=== PATIENT | male | born 1975 | race Caucasian/White ===

== ENCOUNTER 2017-05-08 17:37 | Emergency (ER) | payer SELFPAY ==
[~2017-05-08] VITALS: Ht 175.3 cm; Wt 90.7 kg
[2017-05-08 18:10] VITALS: BP 132/76
[2017-05-08] MEDS ORDERED: LIDOCAINE 1% / SOD BICARB 8.4% 20 ML VIAL. IJ ONE (18:30)
--- NOTE | 2017-05-08 18:57 | PHYS DOC ---
Past Medical History Past Medical History: No Pertinent History Past Surgical History: Other Additional Past Surgical Histo: dental surgeries Alcohol Use: Occasionally Drug Use: None Adult General Chief Complaint Chief Complaint: LACERATION/AVULSION HPI HPI Patient is a 41 year old male who presents with left eyebrow laceration, patient states he was working with a miter saw when it kicked back and cut him. Patient denies any loss of consciousness. Review of Systems Review of Systems Constitutional: Denies fever or chills [] Eyes: Denies change in visual acuity, redness, or eye pain [] Integument: left eyebrow laceration Neurologic: Denies headache, focal weakness or sensory changes [] Endocrine: Denies polyuria or polydipsia [] Current Medications Current Medications Current Medications Medications (Trade) Dose Ordered Sig/Mahin Start Time Stop Time Status Last Admin Dose Admin Lidocaine/Sodium Bicarbonate (Buffered Lidocaine 1%) 20 ml 1X ONCE 05/08/17 18:30 05/08/17 18:31 DC 05/08/17 18:42 20 ML Allergies Allergies Allergies Coded Allergies Type Severity Reaction Last Updated Verified No Known Drug Allergies 11/26/15 No Physical Exam Physical Exam Constitutional: Well developed, well nourished, no acute distress, non-toxic appearance. [] HENT: Normocephalic, atraumatic, bilateral external ears normal, oropharynx moist, no oral exudates, nose normal. [] Skin: Left lateral upper eyebrow with a laceration approximately 1 cm long. There is no eye involvement. Back: No tenderness, no CVA tenderness. [] Extremities: No tenderness, no cyanosis, no clubbing, ROM intact, no edema. [] Neurologic: Alert and oriented X 3, normal motor function, normal sensory function, no focal deficits noted. [] Psychologic: Affect normal, judgement normal, mood normal. [] Current Patient Data Vital Signs Vital Signs Date Time Temp Pulse Resp B/P (MAP) Pulse Ox O2 Delivery O2 Flow Rate FiO2 05/08/17 18:10 97.5 83 20 97 Room Air 97.5 EKG EKG [] Radiology/Procedures Radiology/Procedures Indication: Left eyebrow laceration Procedure: The patient was placed in the appropriate position and anesthesia around the laceration was 1% buffered lidocaine, the area was explored for foreign objects, none was found. The area was then cleaned with 10 ML of normal saline and Betadine, the laceration was closed with 3 interrupted sutures using 6. 0 Prolene and left open to air. Total repaired wound length: Approximately 1 cm Other Items: none The patient tolerated the procedure well Complications:none Course & Med Decision Making Course & Med Decision Making Pertinent Labs and Imaging studies reviewed. (See chart for details) Patient has left upper eyebrow laceration. Laceration was closed by me as noted in procedures, tetanus is up-to-date. Wound care instructions as well as return precautions provided. Discharged in stable condition. Dragon Disclaimer Dragon Disclaimer This electronic medical record was generated, in whole or in part, using a voice recognition dictation system. Departure Departure Impression: Primary Impression: Laceration of eyebrow, left Disposition: 01 HOME, SELF-CARE Condition: STABLE Referrals: NO PCP (PCP) Follow-up with your doctor or the emergency room in 5 days for suture removal Patient Instructions: Laceration Care, Adult, [id number] Additional Instructions: You were seen for left eyebrow laceration. Keep the area clean and dry. Apply Neosporin to the area twice a day. Monitor it for signs and symptoms of infection including but not limited to increased redness increased warmth or odor/yellow drainage from the area and return to the ED if they occur. Follow- up with your doctor or the emergency room in 5 days for suture removal. Scripts No Active Prescriptions or Reported Meds Problem Qualifiers Primary Impression: Laceration of eyebrow, left Encounter type: initial encounter Qualified Codes: S01.112A - Laceration without foreign body of left eyelid and periocular area, initial encounter NATALIE WATKINS FLARE STITCHER May 08, 2017 18:57
== END 2017-05-08 19:00 | disposition home or self-care (01) ==
LOC: ER 17:37
DX: S01.112A Laceration without foreign body of left eyelid and periocular area, initial encounter (principal); W29.8XXA Contact with other powered hand tools and household machinery, initial encounter; Y93.89 Activity, other specified; Y99.8 Other external cause status; Y92.89 Other specified places as the place of occurrence of the external cause
CPT/HCPCS: 12011; 99283-25

== ENCOUNTER 2017-05-14 21:17 | Emergency (ER) | payer SELFPAY ==
[~2017-05-14] VITALS: Ht 175.3 cm; Wt 95.3 kg
[2017-05-14 22:00] VITALS: BP 121/66
--- NOTE | 2017-05-14 22:02 | PHYS DOC ---
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 He has 3 sutures above his left eye. He denies any drainage or discharge coming from the site. He denies any fever chills nausea vomiting. Review of Systems Review of Systems Constitutional: Denies fever or chills [] Eyes: Denies change in visual acuity, redness, or eye pain [] HENT: Denies nasal congestion or sore throat [] Respiratory: Denies cough or shortness of breath [] Cardiovascular: No additional information not addressed in HPI [] GI: Denies abdominal pain, nausea, vomiting, bloody stools or diarrhea [] : Denies dysuria or hematuria [] Musculoskeletal: Denies back pain or joint pain [] Integument: Denies rash or skin lesions. Patient presents to the emergency department for suture removal Neurologic: Denies headache, focal weakness or sensory changes [] Endocrine: Denies polyuria or polydipsia [] Allergies Allergies Allergies Coded Allergies Type Severity Reaction Last Updated Verified No Known Drug Allergies 11/26/15 No Physical Exam Physical Exam Constitutional: Well developed, well nourished, no acute distress, non-toxic appearance. [] Eyes: PERRLA, EOMI, conjunctiva normal, no discharge. Cardiovascular: [place] warm and dry Lungs & Thorax: No respiratory distress noted Skin: Warm, dry, no erythema, no rash. Patient with 3 interrupted sutures noted above the left eye. No drainage or discharge noted from the site edges appear to approximated very well. Neurologic: Alert and oriented X 3, normal motor function, normal sensory function, no focal deficits noted. [] Psychologic: Affect normal, judgement normal, mood normal. [] EKG EKG [] Radiology/Procedures Radiology/Procedures [] Course & Med Decision Making Course & Med Decision Making Pertinent Labs and Imaging studies reviewed. (See chart for details) 3 sutures removed above the left eye. Patient be discharged home in stable condition signs symptoms to return back to emergency department been provided. Patient was encouraged to clean the sites with soap and water and apply any type of antibiotic is needed. Signs and symptoms to follow up with a primary care physician as been provided. Signs and symptoms to return back to emergency department as been provided as well. [] Dragon Disclaimer Dragon Disclaimer This electronic medical record was generated, in whole or in part, using a voice recognition dictation system. Departure Departure Impression: Primary Impression: Visit for suture removal Disposition: HOME, SELF-CARE Condition: STABLE Referrals: NO PCP (PCP) Patient Instructions: Suture Removal-Brief Additional Instructions: Activity as tolerated. Tylenol or ibuprofen for pain or discomfort. Clean the site with soap and water and apply antibiotic ointment to the area. Continue to watch for signs and symptoms of infection: Redness, warmth, tenderness or any yellow/greenish drainage of a come from the site. Follow-up through primary care physician as needed. Return back to emergency department sign symptoms of become worse. Scripts No Active Prescriptions or Reported BARBIE Marie APRN May 14, 2017 22:02
== END 2017-05-14 22:05 | disposition home or self-care (01) ==
LOC: ER 21:17
DX: S01.81XD Laceration without foreign body of other part of head, subsequent encounter (principal); X58.XXXD Exposure to other specified factors, subsequent encounter; Y99.8 Other external cause status; Y92.89 Other specified places as the place of occurrence of the external cause
CPT/HCPCS: 99281

== ENCOUNTER 2021-03-09 07:34 | Emergency (ER) | payer SELFPAY ==
[~2021-03-09] VITALS: Ht 175.3 cm; Wt 100.0 kg
--- NOTE | 2021-03-09 07:52 | ED.ADGEN ---
Past Medical History Past Medical History: No Pertinent History Past Surgical History: Other Additional Past Surgical Histo: dental surgeries Smoking Status: Never Smoker Alcohol Use: Occasionally Drug Use: None General Adult EDM: Chief Complaint: HEADACHE HPI: HPI: Patient is a 45-year-old male who arrives via private vehicle to the emergency department with multiple medical complaints. Patient reports over the past 3 days he has had a headache behind his eyes which has caused him photophobia. Patient describes his pain as sharp and throbbing. Patient states he has been using ibuprofen without relief. Patient reports roughly 1 week prior to his visit today that he had lower extremity pain in his knees migrating to his legs bilaterally. The patient describes this pain is being like "shrapnel". He does state however that this pain has subsided during this time. He denies any injury. He further denies any known fevers. Additionally he denies any neck involvement with respect to his headache. He is awake, alert and uncomfortable appearing. Review of Systems: Review of Systems: Constitutional: Denies fever or chills. [] Eyes: Reports photophobia. Denies change in visual acuity. [] HENT: Denies nasal congestion or sore throat. [] Respiratory: Denies cough or shortness of breath. [] Cardiovascular: Denies chest pain or edema. [] GI: Denies abdominal pain, nausea, vomiting, bloody stools or diarrhea. [] : Denies dysuria. [] Musculoskeletal: Reports lower extremity pain bilaterally. Denies back pain or joint pain. [] Integument: Denies rash. [] Neurologic: Reports headache. Denies focal weakness or sensory changes. [] Endocrine: Denies polyuria or polydipsia. [] Lymphatic: Denies swollen glands. [] Psychiatric: Denies depression or anxiety. [] Current Medications: Current Medications Medications (Trade) Dose Ordered Sig/Mahin Start Time Stop Time Status Last Admin Dose Admin Diphenhydramine HCl (Benadryl) 50 mg 1X ONCE 03/09/21 08:00 03/09/21 08:04 DC 03/09/21 08:24 50 MG Ketorolac Tromethamine (Toradol 30mg Vial) 30 mg 1X ONCE 03/09/21 08:00 03/09/21 08:04 DC 03/09/21 08:25 30 MG Lorazepam (Ativan Inj) 2 mg 1X ONCE 03/09/21 08:00 03/09/21 08:04 DC 03/09/21 08:25 2 MG Metoclopramide HCl (Reglan Vial) 10 mg 1X ONCE 03/09/21 08:00 03/09/21 08:04 DC 03/09/21 08:25 10 MG Sodium Chloride 1,000 ml @ 1,000 mls/hr 1X ONCE 03/09/21 08:00 03/09/21 08:59 DC 03/09/21 08:24 1,000 MLS/HR Allergies: Allergies: Allergies Coded Allergies Type Severity Reaction Last Updated Verified No Known Drug Allergies 11/26/15 No Physical Exam: PE: Constitutional: Uncomfortable appearing. Well developed, well nourished, non- toxic appearance. [] HENT: Normocephalic, atraumatic, bilateral external ears normal, oropharynx moist, no oral exudates, nose normal. [] Eyes: Conjunctival injection. PERRLA, EOMI, no discharge. [] Neck: Normal range of motion, no tenderness, supple, no stridor. [] Cardiovascular:Heart rate regular rhythm, no murmur [] Lungs & Thorax: Bilateral breath sounds clear to auscultation [] Abdomen: Bowel sounds normal, soft, no tenderness, no masses, no pulsatile masses. [] Skin: Warm, dry, no erythema, no rash. [] Back: No tenderness, no CVA tenderness. [] Extremities: No tenderness, no cyanosis, no clubbing, ROM intact, no edema. [] Neurologic: Alert and oriented X 3, normal motor function, normal sensory function, no focal deficits noted. [] Psychologic: Affect normal, judgement normal, mood normal. [] Current Patient Data: Labs: Laboratory Tests Test 03/09/21 08:03 White Blood Count 10.0 x10^3/uL (4.0-11.0) Red Blood Count 4.31 x10^6/uL (4.30-5.70) Hemoglobin 13.2 g/dL (13.0-17.5) Hematocrit 38.7 % (39.0-53.0) L Mean Corpuscular Volume 90 fL (79-100) Mean Corpuscular Hemoglobin 31 pg (25-35) Mean Corpuscular Hemoglobin Concent 34 g/dL (31-37) Red Cell Distribution Width 12.5 % (11.5-14.5) Platelet Count 423 x10^3/uL (140-400) H Neutrophils (%) (Auto) 64 % (31-73) Lymphocytes (%) (Auto) 26 % (24-48) Monocytes (%) (Auto) 8 % (0-9) Eosinophils (%) (Auto) 1 % (0-3) Basophils (%) (Auto) 1 % (0-3) Neutrophils # (Auto) 6.4 x10^3/uL (1.8-7.7) Lymphocytes # (Auto) 2.6 x10^3/uL (1.0-4.8) Monocytes # (Auto) 0.8 x10^3/uL (0.0-1.1) Eosinophils # (Auto) 0.1 x10^3/uL (0.0-0.7) Basophils # (Auto) 0.1 x10^3/uL (0.0-0.2) Sodium Level 138 mmol/L (136-145) Potassium Level 4.1 mmol/L (3.5-5.1) Chloride Level 105 mmol/L (98-107) Carbon Dioxide Level 22 mmol/L (21-32) Anion Gap 11 (6-14) Blood Urea Nitrogen 15 mg/dL (8-26) Creatinine 0.9 mg/dL (0.7-1.3) Estimated GFR (Cockcroft-Gault) 92.1 BUN/Creatinine Ratio 17 (6-20) Glucose Level 122 mg/dL (70-99) H Calcium Level 8.8 mg/dL (8.5-10.1) Total Bilirubin 0.4 mg/dL (0.2-1.0) Aspartate Amino Transferase (AST) 29 U/L (15-37) Alanine Aminotransferase (ALT) 58 U/L (16-63) Alkaline Phosphatase 90 U/L (46-116) Total Protein 7.6 g/dL (6.4-8.2) Albumin 3.7 g/dL (3.4-5.0) Albumin/Globulin Ratio 0.9 (1.0-1.7) L Laboratory Tests 03/09/21 08:03 Laboratory Tests 03/09/21 08:03 Vital Signs: Vital Signs Date Time Temp Pulse Resp B/P (MAP) Pulse Ox O2 Delivery O2 Flow Rate FiO2 03/09/21 08:03 99.0 74 18 150/107 (121) 99 Room Air 99.0 EKG: EKG: [] Heart Score: C/O Chest Pain: No Risk Factors: Risk Factors: DM, Current or recent (<one month) smoker, HTN, HLP, family history of CAD, obesity. Risk Scores: Score 0 - 3: 2.5% MACE over next 6 weeks - Discharge Home Score 4 - 6: 20.3% MACE over next 6 weeks - Admit for Clinical Observation Score 7 - 10: 72.7% MACE over next 6 weeks - Early Invasive Strategies Radiology/Procedures: Radiology/Procedures: [] Impression: [facility] [address] [place] [address] IMAGING REPORT Signed PATIENT: CADENCE SINHA ACCOUNT: [id number] : 1975 LOCATION: ER AGE: 45 SEX: M EXAM STATUS: REG ER ORD. PHYSICIAN: BETSY REYNA DO REASON: Headache PROCEDURE: CT HEAD WO CONTRAST PQRS Compliance Statement: One or more of the following individualized dose reduction techniques were utili zed for this examination: 1. Automated exposure control 2. Adjustment of the mA and/or kV according to patient size 3. Use of iterative reconstruction technique CT head without contrast 03/09/2021 8:32 AM INDICATION: Headache COMPARISON: None available TECHNIQUE: Multiple axial CT images of the head were obtained from skull base through the vertex without intravenous contrast. FINDINGS: Head: Ventricles, sulci and basal cisterns are within normal limits. There is no hydrocephalus. Mendoza-white matter differentiation is normal. There is no acute intracranial hemorrhage. There is no mass, mass effect or midline shift. Posterior fossa is normal in appearance. Visualized portions of the orbits are normal. Paranasal sinuses are well aerated. Mastoid air cells are well aerated. Scalp and calvaria are normal. IMPRESSION: No acute intracranial hemorrhage. Electronically signed by: Sandy Jones MD (03/09/2021 8:55 AM) [id number] DICTATED and SIGNED BY: SANDY JONES MD DATE: 03/09/21 [id number] 0 Course & Med Decision Making: Course & Med Decision Making Pertinent Labs and Imaging studies reviewed. (See chart for details) [] The patient remains awake, alert and in no acute distress. Patient reports resolution of his headache. I did speak with him with respect to his lower extremities he states he has multiple knee injuries in both legs and I question whether or not this may be arthritic in nature. He has no calf tenderness or swelling as he reports his pain is anterior. I do not suspect the patient is at risk for any thrombotic activities of his lower extremities. Nonetheless have asked that he follow-up with his primary care physician should he have any further complaints with respect to his extremities. Should he develop the worst headache of his life or fever with headache, I advised that he return to the emergency department. The patient understands and has agreed to do so. He is nontoxic-appearing and neurologically intact. He is stable for discharge. Dragon Disclaimer: Radha Disclaimer: This electronic medical record was generated, in whole or in part, using a voice recognition dictation system. Departure Departure Impression: Primary Impression: Headache Additional Impression: Arthralgia of both knees Disposition: HOME / SELF CARE / HOMELESS Condition: IMPROVED Referrals: NO PCP (PCP) Patient Instructions: Arthralgia, General Headache Without Cause Scripts Butalb/Acetaminophen/Caffeine ([id number] 50-300-40) 1 Each Capsule 1 EACH PO QID for 3 Days, #12 CAP Prov: BETSY REYNA DO 03/09/21 Naproxen Sodium (ANAPROX DS) 550 Mg Tablet 1 TAB PO BID for 5 Days, #10 TAB 0 Refills Prov: BETSY REYNA DO 03/09/21 Problem Qualifiers BETSY REYNA DO Mar 09, 2021 07:52
[2021-03-09] MEDS ORDERED: KETOROLAC 30 MG/ML VIAL. IVP ONE (08:00)
[2021-03-09] MEDS ORDERED: METOCLOPRAMIDE HCL 10 MG/2 ML VIAL. IVP ONE (08:00)
[2021-03-09] MEDS ORDERED: diphenhydrAMINE 50 MG/ML VIAL IVP ONE (08:00)
[2021-03-09] MEDS ORDERED: IV NORMAL SALINE 1000ML BAG 1,000 ML IV ONE (08:00)
[2021-03-09 08:11] LABS: BASO # 0.1 x10^3/uL (0.0-0.2); BASO % 1 % (0-3); EOS # 0.1 x10^3/uL (0.0-0.7); EOS % 1 % (0-3); HEMATOCRIT 38.7 % (39.0-53.0); HEMOGLOBIN 13.2 g/dL (13.0-17.5); LYMPH # 2.6 x10^3/uL (1.0-4.8); LYMPH % 26 % (24-48); MEAN CORPUSCULAR HEMOGLOBIN 31 pg (25-35); MEAN CORPUSCULAR HGB CONC 34 g/dL (31-37); MEAN CORPUSCULAR VOLUME 90 fL (79-100); MONO # 0.8 x10^3/uL (0.0-1.1); MONO % 8 % (0-9); NEUT # 6.4 x10^3/uL (1.8-7.7); NEUT % 64 % (31-73); PLATELET COUNT 423 x10^3/uL (140-400); RED BLOOD COUNT 4.31 x10^6/uL (4.30-5.70); RED CELL DISTRIBUTION WIDTH 12.5 % (11.5-14.5)
[2021-03-09 08:23] LABS: CALCIUM 8.8 mg/dL (8.5-10.1); CREATININE 0.9 mg/dL (0.7-1.3); GFR 92.1; POTASSIUM 4.1 mmol/L (3.5-5.1)
[2021-03-09 08:25] LABS: ALBUMIN 3.7 g/dL (3.4-5.0); ALBUMIN/GLOBULIN RATIO 0.9 (1.0-1.7); TOTAL BILIRUBIN 0.4 mg/dL (0.2-1.0); TOTAL PROTEIN 7.6 g/dL (6.4-8.2)
--- NOTE | 2021-03-09 08:57 | RAD ---
PQRS Compliance Statement: One or more of the following individualized dose reduction techniques were utilized for this examinat ion: 1. Automated exposure control 2. Adjustment of the mA and/or kV according to patient size 3. Use of iterative reconstruction technique CT head without contrast 03/09/2021 8:32 AM INDICATION: Headache COMPARISON: None available TECHNIQUE: Multiple axial CT images of the head were obtained from skull base through the vertex with out intravenous contrast. FINDINGS: Head: Ventricles, sulci and basal cisterns are within normal limits. There is no hydrocephalus. Mendoza-white matter differentiation is normal. There is no acute intracranial hemorrhage. There is no mass, mass e ffect or midline shift. Posterior fossa is normal in appearance. Visualized portions of the orbits are normal. Paranasal sinuses are well aerated. Mastoid air cells a re well aerated. Scalp and calvaria are normal. IMPRESSION: No acute intracranial hemorrhage. Electronically signed by: Elva Arauz MD (03/09/2021 8:55 AM) [id number]
[2021-03-09] MEDS ORDERED: BUTA1CAP57 PO (09:37)
[2021-03-09] MEDS ORDERED: NAPR-682 PO (09:37)
[2021-03-09 09:40] VITALS: BP 112/61
== END 2021-03-09 10:09 | disposition home or self-care (01) ==
LOC: ER 07:34
DX: R51.9 Headache, unspecified (principal); M17.0 Bilateral primary osteoarthritis of knee; H53.149 Visual discomfort, unspecified
CPT/HCPCS: 36415; 70450; 80053; 85025; 96361; 96374; 96375; 99285; J1200; J1885; J2060; J2765; J7030